=== PATIENT | male | born 1980 ===

== ENCOUNTER 2020-12-09 05:49 | Emergency (ER) | payer MEDICAID ==
[2020-12-09] MEDS ORDERED: Nitroglycerin 0.4 MG Tab.SL SL ONE (06:28)
[2020-12-09 06:35] LABS: AMPHETAMINES,URINE NEGATIVE (NEGATIVE); BARBITURATES,URINE NEGATIVE (NEGATIVE); BENZODIAZEPINE,URINE NEGATIVE (NEGATIVE); MDMA (ECSTASY), URINE NEGATIVE (NEGATIVE); METHADONE,URINE NEGATIVE (NEGATIVE); METHAMPHETAMINES,URINE NEGATIVE (NEGATIVE); OPIATES,URINE NEGATIVE (NEGATIVE); OXYCODONE,URINE NEGATIVE (NEGATIVE); PHENCYCLIDINE,URINE NEGATIVE (NEGATIVE); TCA,URINE NEGATIVE (NEGATIVE)
--- NOTE | 2020-12-09 06:35 | EDM.PDOC ---
<Bernardo Serra - Last Filed: 12/09/20 07:01> ED HPI GENERAL MEDICAL PROBLEM - General Chief Complaint: Chest Pain Stated Complaint: PAIN ON ENTIRE LEFT SIDE, ARM NUMB Time Seen by Provider: 12/09/20 06:15 Source of Information: Reports: Patient History Limitations: Reports: No Limitations - History of Present Illness INITIAL COMMENTS - FREE TEXT/NARRATIVE: This 40 yo male patient was brought to the ED by law enforcement [facility] due to left sided chest pain and left shoulder pain. The patient reports his symptoms started this morning at about 0200. The patient reports he was given aspirin while at the penitentiary with no changes in his symptoms. The patient denied any previous similar symptoms. The patient denies any history of trauma. The patient denies nausea, vomiting and cough. Onset: Today Onset Date: 12/09/20 Onset Time: 02:00 Duration: Constant Location: Reports: Chest (left sided chest wall and left shoulder) Quality: Reports: Ache, Sharp, Stabbing Severity: Moderate Improves with: Reports: None Worsens with: Reports: None Context: Reports: Other Associated Symptoms: Reports: Chest Pain Treatments [employer]ER: Reports: Aspirin Left Shoulder Pain Score (Numeric/FACES): 9 - Related Data Allergies Allergy/AdvReac Type Severity Reaction Status Date / Time No Known Allergies Allergy Verified 12/09/20 06:03 Home Meds: Home Meds . [No Known Home Meds] 12/09/20 [History] Past Medical History - Past Health History Medical/Surgical History: Denies Medical/Surgical History Social & Family History - Tobacco Use Tobacco Use Status *Q: Never Tobacco User - Caffeine Use Caffeine Use: Reports: None - Recreational Drug Use Recreational Drug Use: No ED ROS GENERAL - Review of Systems Review Of Systems: Comprehensive ROS is negative, except as noted in HPI. ED EXAM, GENERAL - Physical Exam Exam: See Below Exam Limited By: No Limitations General Appearance: Alert, WD/WN, Anxious, Moderate Distress Eye Exam: Bilateral Eye: EOMI, Normal Inspection, PERRL Ears: Normal External Exam, Normal Canal, Hearing Grossly Normal, Normal TMs Nose: Normal Inspection, Normal Mucosa, No Blood Throat/Mouth: Normal Inspection, Normal Lips, Normal Teeth, Normal Gums, Normal Oropharynx, Normal Voice, No Airway Compromise Head: Atraumatic, Normocephalic Neck: Normal Inspection, Supple, Non-Tender, Full Range of Motion Respiratory/Chest: No Respiratory Distress, Lungs Clear, Normal Breath Sounds, No Accessory Muscle Use Cardiovascular: Tachycardia GI/Abdominal: Normal Bowel Sounds, Soft, Non-Tender, No Organomegaly, No Distent ion, No Abnormal Bruit, No Mass (Male) Exam: Deferred Rectal (Males) Exam: Deferred Back Exam: Normal Inspection, Full Range of Motion, NT Extremities: Normal Inspection, Normal Range of Motion, Non-Tender, Normal Capillary Refill, No Pedal Edema Neurological: Alert, Oriented, CN II-XII Intact, Normal Cognition, Normal Gait, Normal Reflexes, No Motor/Sensory Deficits Psychiatric: Normal Affect, Normal Mood Skin Exam: Warm, Dry, Intact, Normal Color, No Rash Lymphatic: No Adenopathy Departure - Departure Disposition: DC/Tfer to Court of Law En 21 Clinical Impression: Atypical chest pain Instructions: Nonspecific Chest Pain, Adult, [id number] Forms: ED Department Discharge Additional Instructions: No contraindication to being penitentiary at this time. Use Tylenol as needed for pain. Follow up in clinic for recheck if not improved in 3 to 4 days. Sepsis Event Note (ED) - Evaluation Sepsis Screening Result: No Definite Risk <Danilo Galvan - Last Filed: 12/09/20 07:13> Course - Vital Signs Last Recorded V/S: Last Vital Signs Temp 99.0 F 12/09/20 06:04 Pulse 114 H 12/09/20 06:04 Resp 18 12/09/20 06:04 BP 124/84 12/09/20 06:34 Pulse Ox 95 12/09/20 06:04 - Orders/Labs/Meds Orders: Active Orders 24 hr Category Date Time Status EKG Documentation Completion [RC] STAT Care 12/09/20 06:02 Active Acetaminophen [TylenoL] Med 12/09/20 07:12 Once 650 mg PO NOW ONE Labs: Laboratory Tests 12/09/20 12/09/20 12/09/20 Range/Units 06:10 06:10 06:20 WBC 8.6 (5.0-10.0) 10^3/uL RBC 3.84 L (4.6-6.2) 10^6/uL Hgb 10.9 L (14.0-18.0) g/dL Hct 33.8 L (40.0-54.0) % MCV 88.0 (80-100) fL MCH 28.4 (27.0-34.0) pg MCHC 32.2 L (33.0-35.0) g/dL Plt Count 488 H (150-450) 10^3/uL Neut % (Auto) 46.9 (42.2-75.2) % Lymph % (Auto) 37.1 (20.5-50.1) % Bent % (Auto) 15.2 H (2-8) % Eos % (Auto) 0.6 L (1.0-3.0) % Baso % (Auto) 0.2 (0.0-1.0) % Sodium 137 (136-145) mmol/L Potassium 4.0 (3.5-5.1) mmol/L Chloride 103 (98-107) mmol/L Carbon Dioxide 25 (21-32) mmol/L Anion Gap 13.0 (7-13) mEq/L BUN 10 (7-18) mg/dL Creatinine 0.70 (0.70-1.30) mg/dL Est Cr Clr Drug Dosing 141.94 mL/min Estimated GFR (MDRD) > 60 BUN/Creatinine Ratio 14.3 (No establ ref range) Glucose 81 (74-99) mg/dL Calcium 7.6 L (8.5-10.1) mg/dL Total Bilirubin 0.5 (0.2-1.0) mg/dL AST 16 (15-37) U/L ALT 25 (16-63) U/L Alkaline Phosphatase 61 (46-116) U/L Troponin I 0.019 (0.000-0.056) ng/mL Total Protein 5.6 L (6.4-8.2) g/dL Albumin 1.7 L (3.4-5.0) g/dL Globulin 3.9 Albumin/Globulin Ratio 0.44 Urine Color Yellow (YELLOW) Urine Appearance Turbid (CLEAR) Urine pH 8.0 (5.0-9.0) Ur Specific [place] 1.025 (1.005-1.030) Urine Protein Negative (NEGATIVE) Urine Glucose (UA) Negative (NEGATIVE) Urine Ketones Negative (NEGATIVE) Urine Occult Blood Negative (NEGATIVE) Urine Nitrite Negative (NEGATIVE) Urine Bilirubin Negative (NEGATIVE) Urine Urobilinogen 1.0 (0.2-1.0) mg/dL Ur Leukocyte Esterase Negative (NEGATIVE) Urine Opiates Screen (NEGATIVE) Ur Oxycodone Screen (NEGATIVE) Urine Methadone Screen (NEGATIVE) Ur Barbiturates Screen (NEGATIVE) U Tricyclic Antidepress (NEGATIVE) Ur Phencyclidine Scrn (NEGATIVE) Ur Amphetamine Screen (NEGATIVE) U Methamphetamines Scrn (NEGATIVE) Urine MDMA Screen (NEGATIVE) U Benzodiazepines Scrn (NEGATIVE) Urine Cocaine Screen (NEGATIVE) U Marijuana (THC) Screen (NEGATIVE) 12/09/20 Range/Units 06:20 WBC (5.0-10.0) 10^3/uL RBC (4.6-6.2) 10^6/uL Hgb (14.0-18.0) g/dL Hct (40.0-54.0) % MCV (80-100) fL MCH (27.0-34.0) pg MCHC (33.0-35.0) g/dL Plt Count (150-450) 10^3/uL Neut % (Auto) (42.2-75.2) % Lymph % (Auto) (20.5-50.1) % Bent % (Auto) (2-8) % Eos % (Auto) (1.0-3.0) % Baso % (Auto) (0.0-1.0) % Sodium (136-145) mmol/L Potassium (3.5-5.1) mmol/L Chloride (98-107) mmol/L Carbon Dioxide (21-32) mmol/L Anion Gap (7-13) mEq/L BUN (7-18) mg/dL Creatinine (0.70-1.30) mg/dL Est Cr Clr Drug Dosing mL/min Estimated GFR (MDRD) BUN/Creatinine Ratio (No establ ref range) Glucose (74-99) mg/dL Calcium (8.5-10.1) mg/dL Total Bilirubin (0.2-1.0) mg/dL AST (15-37) U/L ALT (16-63) U/L Alkaline Phosphatase (46-116) U/L Troponin I (0.000-0.056) ng/mL Total Protein (6.4-8.2) g/dL Albumin (3.4-5.0) g/dL Globulin Albumin/Globulin Ratio Urine Color (YELLOW) Urine Appearance (CLEAR) Urine pH (5.0-9.0) Ur Specific [place] (1.005-1.030) Urine Protein (NEGATIVE) Urine Glucose (UA) (NEGATIVE) Urine Ketones (NEGATIVE) Urine Occult Blood (NEGATIVE) Urine Nitrite (NEGATIVE) Urine Bilirubin (NEGATIVE) Urine Urobilinogen (0.2-1.0) mg/dL Ur Leukocyte Esterase (NEGATIVE) Urine Opiates Screen Negative (NEGATIVE) Ur Oxycodone Screen Negative (NEGATIVE) Urine Methadone Screen Negative (NEGATIVE) Ur Barbiturates Screen Negative (NEGATIVE) U Tricyclic Antidepress Negative (NEGATIVE) Ur Phencyclidine Scrn Negative (NEGATIVE) Ur Amphetamine Screen Negative (NEGATIVE) U Methamphetamines Scrn Negative (NEGATIVE) Urine MDMA Screen Negative (NEGATIVE) U Benzodiazepines Scrn Negative (NEGATIVE) Urine Cocaine Screen Negative (NEGATIVE) U Marijuana (THC) Screen Negative (NEGATIVE) Meds: Medications Discontinued Medications Generic Name Dose Route Start Last Admin Trade Name Freq PRN Reason Stop Dose Admin Nitroglycerin 0.4 mg 12/09/20 06:28 12/09/20 06:34 Nitrostat SL 12/09/20 06:29 0.4 mg ONETIME ONE Administration - Radiology Interpretation Free Text/Narrative:: [facility] Final Radiology Report Call: [phone] assistance Online chat: [email or web address] Name: MATIAS REDD Age: 40Years M Date: 12/09/2020 SSN: -- : 1980 Study: CR CHEST 2V Requesting Physician: Bernardo Serra Images: 2 Addl Studies: Provided Clinical History: chest pain, left shoulder pain Contrast: Contrast Medium: Contrast Amount: Contrast Method: CONFIDENTIALITY STATEMENT This report is intended only for use by the referring physician, and only in accordance with law. If you received this in error, call [phone]. Page 1 of 1 PROCEDURE INFORMATION: Exam: XR Chest, 2 Views Exam date and time: 12/09/2020 6:50 AM Age: 40 years old Clinical indication: Chest pain; Additional info: Chest pain, left shoulder pain TECHNIQUE: Imaging protocol: XR of the chest Views: 2 views. COMPARISON: No relevant prior studies available. FINDINGS: Lungs: Unremarkable. No consolidation. Pleural spaces: Unremarkable. No pleural effusion. No pneumothorax. Heart/Mediastinum: Unremarkable. No cardiomegaly. Bones/joints: Unremarkable. IMPRESSION: No acute findings. Thank you for allowing us to participate in the care of your patient. Dictated and Authenticated by: Tremaine Stack MD 12/09/2020 7:04 AM Central Time ( & [place]) [facility] Final Radiology Report Call: [phone] assistance Online chat: [email or web address] Name: MATIAS REDD Age: 40Years M Date: 12/09/2020 SSN: -- : 1980 Study: CR SHOULDER COMP LT Requesting Physician: Bernardo Serra Images: 2 Addl Studies: Provided Clinical History: chest pain, left shoulder pain Contrast: Contrast Medium: Contrast Amount: Contrast Method: CONFIDENTIALITY STATEMENT This report is intended only for use by the referring physician, and only in accordance with law. If you received this in error, call [phone]. Page 1 of 1 PROCEDURE INFORMATION: Exam: XR Left Shoulder Exam date and time: 12/09/2020 6:52 AM Age: 40 years old Clinical indication: Pain; Shoulder; Left; Additional info: Chest pain, left shoulder pain TECHNIQUE: Imaging protocol: XR Left shoulder. Views: 2 or more views. COMPARISON: No relevant prior studies available. FINDINGS: Bones/joints: There is no evidence of acute fracture or dislocation. No significant narrowing of the joint spaces. No lytic or blastic lesions. Soft tissues: No radiopaque foreign body within the soft tissues. IMPRESSION: No acute findings appreciated. Thank you for allowing us to participate in the care of your patient. Dictated and Authenticated by: Tremaine Stack MD 12/09/2020 7:05 AM Central Time ([place] & [place]) Departure - Departure Time of Disposition: 07:08 Reason for Transfer *Q: Other Condition: Good Sepsis Event Note (ED) - Focused Exam Vital Signs: Vital Signs Temp Pulse Resp BP BP Pulse Ox 12/09/20 06:34 124/84 12/09/20 06:04 99.0 F 114 H 18 127/89 95 - My Orders Last 24 Hours: My Active Orders 12/09/20 07:12 Acetaminophen [TylenoL] 650 mg PO NOW ONE - Assessment/Plan Last 24 Hours: My Active Orders 12/09/20 07:12 Acetaminophen [TylenoL] 650 mg PO NOW ONE
[2020-12-09 06:50] LABS: CHLORIDE,CL 103 mmol/L (98-107); SODIUM,NA 137 mmol/L (136-145)
--- NOTE | 2020-12-09 07:04 | CR ---
PROCEDURE INFORMATION: Exam: XR Chest, 2 Views Exam date and time: 12/09/2020 6:50 AM Age: 40 years old Clinical indication: Chest pain; Additional info: Chest pain, left shoulder pain TECHNIQUE: Imaging protocol: XR of the chest Views: 2 views. COMPARISON: No relevant prior studies available. FINDINGS: Lungs: Unremarkable. No consolidation. Pleural spaces: Unremarkable. No pleural effusion. No pneumothorax. Heart/Mediastinum: Unremarkable. No cardiomegaly. Bones/joints: Unremarkable. IMPRESSION: No acute findings.
--- NOTE | 2020-12-09 07:05 | CR ---
PROCEDURE INFORMATION: Exam: XR Left Shoulder Exam date and time: 12/09/2020 6:52 AM Age: 40 years old Clinical indication: Pain; Shoulder; Left; Additional info: Chest pain, left shoulder pain TECHNIQUE: Imaging protocol: XR Left shoulder. Views: 2 or more views. COMPARISON: No relevant prior studies available. FINDINGS: Bones/joints: There is no evidence of acute fracture or dislocation. No significant narrowing of the joint spaces. No lytic or blastic lesions. Soft tissues: No radiopaque foreign body within the soft tissues. IMPRESSION: No acute findings appreciated.
[2020-12-09] MEDS ORDERED: Acetaminophen 325 MG Tab PO ONE (07:12)
== END 2020-12-09 07:25 ==
LOC: DL.ED 05:49
DX: R07.89 Other chest pain (principal)
CPT/HCPCS: 36415; 71046; 73030; 80053; 80305; 81003; 84484; 85025; 93005; 99285; A9270; 99283

== ENCOUNTER 2021-09-28 12:51 | Emergency (ER) | payer MEDICAID ==
[2021-09-28 14:21] LABS: ANION GAP 15.4 mEq/L (7-13); CHLORIDE,CL 100 mmol/L (98-107); SODIUM,NA 135 mmol/L (136-145)
[2021-09-28] MEDS ORDERED: Iopamidol 612 MG/ML 100 ML Bottle IVPUSH ONE (14:30)
--- NOTE | 2021-09-28 15:36 | CT ---
PROCEDURE INFORMATION: Exam: CT Abdomen And Pelvis With Contrast Exam date and time: 09/28/2021 2:39 PM Age: 41 years old Clinical indication: Other: Abdominal incision with purulent drainage; Prior surgery; Surgery date: 1-6 months; Surgery type: Colon surgery beginning of August 2021 TECHNIQUE: Imaging protocol: Computed tomography of the abdomen and pelvis with contrast. Radiation optimization: All CT scans at this facility use at least one of these dose optimization techniques: automated exposure control; mA and/or kV adjustment per patient size (includes targeted exams where dose is matched to clinical indication); or iterative reconstruction. Contrast material: ISOVUE 300; Contrast volume: 75 ml; Contrast route: INTRAVENOUS (IV); COMPARISON: CR Chest 1V Frontal 08/12/2021 5:03 AM FINDINGS: Lungs: Consolidation/scarring in the right middle lobe with associated traction bronchiectasis. Scarring and atelectasis also appreciated in the left lower lobe. Visualized lung bases appear otherwise clear except for mild scarring/linear atelectasis in the lingula and left lung base. Diaphragm: There is nonspecific elevation of the right hemidiaphragm. Liver: There is enlargement of the liver, measuring 22 cm. There is a diffuse decrease in hepatic parenchymal density, consistent with fatty infiltration. There are multiple simple right renal cysts. Gallbladder and bile ducts: Normal. No calcified stones. No ductal dilation. Pancreas: Normal. No ductal dilation. Spleen: Normal. No splenomegaly. Adrenal glands: Normal. No mass. Kidneys and ureters: Largest right renal cyst measures 1.2 cm. The right kidney is otherwise unremarkable. The right ureter is normal. The left ureter is normal. The left kidney is normal. Stomach and bowel: Partial colectomy. [place] colonic anastomosis in the left upper quadrant. No significant bowel wall thickening or bowel obstruction. There is moderate constipation. Appendix: No evidence of appendicitis. Intraperitoneal space: 12.5 cm x 2.3 cm x 8.4 cm rim enhancing and gas containing intraperitoneal/peritoneal fluid collection (image 45 series 2 and image 40 series 4). The collection abuts directly on the peritoneal wall. There is a small amount of free intraperitoneal fluid present. Scattered foci of free air appreciated in the left upper quadrant mesentery and right subdiaphragmatic region. Mild diffuse mesenteric haziness/edema. Retroperitoneal space: No acute abnormalities in the retroperitoneal space. Vasculature: Unremarkable. No abdominal aortic aneurysm. Lymph nodes: Prominent retroperitoneal and mesenteric lymph nodes, most probably of reactive etiology. Urinary bladder: Unremarkable as visualized. Reproductive: Unremarkable as visualized. Bones/joints: No acute skeletal pathology. Mild multilevel degenerative changes of the spine, as manifested by multilevel anterior osteophytes and multilevel decrease in intervertebral disc space. Note is made of a prominent posterior disc bulge at L4-L5, causing moderate central canal stenosis and moderate bilateral neural foraminal stenosis at this level. Soft tissues: 3.4 cm x 4.5 cm x 9.6 cm gas containing subcutaneous fluid collection in the ventral abdominal wall (image 43 series 2 and image 45 series 4). Well-defined tract connecting the intraperitoneal fluid collection with the subcutaneous fluid collection (image 43 series 2). Surgical skin clips projecting in the ventral abdominal wall. Mild body wall edema. IMPRESSION: 1. 12.5 cm x 2.3 cm x 8.4 cm intraperitoneal/peritoneal abscess in the anterior abdomen interconnecting with a 3.4 cm x 4.5 cm x 9.6 cm subcutaneous ventral abdominal wall abscess through a well-defined tract in the ventral abdominal wall, as detailed above. Note that the intraperitoneal abscess is inseparable from the colo colonic anastomosis. Anastomotic leak is within the differential diagnosis. 2. Scattered pneumoperitoneum, could be related to air leakage from the intraperitoneal abscess, or leakage from the colo colonic anastomosis. 3. Reactive mesenteric and retroperitoneal adenopathy. 4. Bilateral lung base findings are most compatible with chronic scarring/atelectasis. Superimposed infectious pneumonic process should be entertained in the appropriate clinical setting. 5. Incidental findings as detailed above. COMMENTS: Consistent with the [employer]'s Incidental Findings Committee white paper (J Am Josiah Radiol 2018): Any incidental renal lesion less than 1 cm or classified as too small to characterize, or any incidental cystic renal lesion characterized as simple-appearing, is likely benign. No follow-up imaging is recommended for these lesions per consensus recommendations based on imaging criteria.
[2021-09-28] MEDS ORDERED: cefTRIAXone 1 GM in Sodium Chloride 0.9% 50 ML IV ONE (15:54)
[2021-09-28] MEDS ORDERED: metroNIDAZOLE/Normal Saline 500 MG in Premix Bag 100 BAG IV ONE (15:54)
--- NOTE | 2021-09-28 16:11 | EDM.PDOC ---
ED HPI GENERAL MEDICAL PROBLEM - General Chief Complaint: Skin Complaint Time Seen by Provider: 09/28/21 13:00 Source of Information: Reports: Patient History Limitations: Reports: No Limitations - History of Present Illness INITIAL COMMENTS - FREE TEXT/NARRATIVE: This 41 yo male patient was brought to the ED by [facility] due to drainage from a surgical wound in his abdomen. The patient reports he had surgery in [facility] for a bowel resection 1-2 months ago. Today, the patient went to a gas station when he started to cough and noticed drainage from the surgical wound. The patient reports he did not follow-up to have his stanford removed after surgery and has not had problems until now. Onset: Today Duration: Minutes:, Constant Location: Reports: Abdomen Quality: Reports: Other Severity: Moderate Improves with: Reports: None Worsens with: Reports: None Context: Reports: Other Associated Symptoms: Reports: No Other Symptoms - Related Data Allergies Allergy/AdvReac Type Severity Reaction Status Date / Time No Known Allergies Allergy Verified 09/28/21 12:51 Home Meds: Home Meds . [No Known Home Meds] 12/09/20 [History] Past Medical History - Past Health History Medical/Surgical History: Denies Medical/Surgical History Respiratory History: Reports: Intubation, Previous, Other (See Below) Other Respiratory History: COVID Gastrointestinal History: Reports: Bowel Obstruction - Infectious Disease History Infectious Disease History: Reports: Novel Coronavirus - Past Surgical History GI Surgical History: Reports: Small Bowel Social & Family History - Tobacco Use Tobacco Use Status *Q: Current Every Day Tobacco User Years of Tobacco use: 15 Packs/Tins Daily: 0.3 - Caffeine Use Caffeine Use: Reports: Soda - Recreational Drug Use Recreational Drug Use: No ED ROS GENERAL - Review of Systems Review Of Systems: Comprehensive ROS is negative, except as noted in HPI. ED EXAM, SKIN/RASH Exam: See Below Exam Limited By: No Limitations General Appearance: Alert, WD/WN, Moderate Distress Eye Exam: Bilateral Eye: EOMI, Normal Inspection, PERRL Ears: Normal External Exam, Normal Canal, Hearing Grossly Normal, Normal TMs Nose: Normal Inspection, Normal Mucosa, No Blood Throat/Mouth: Normal Inspection, Normal Lips, Normal Teeth, Normal Gums, Normal Oropharynx, Normal Voice, No Airway Compromise Head: Atraumatic, Normocephalic Neck: Normal Inspection, Supple, Non-Tender, Full Range of Motion Respiratory/Chest: No Respiratory Distress, Lungs Clear, Normal Breath Sounds, No Accessory Muscle Use, Chest Non-Tender Cardiovascular: Normal Peripheral Pulses, Regular Rate, Rhythm, No Edema, No Gallop, No JVD, No Murmur, No Rub GI/Abdominal: Tender, Other (Drainage from the surgical wound) (Male) Exam: Deferred Rectal (Males) Exam: Deferred Back Exam: Normal Inspection, Full Range of Motion, NT Extremities: Normal Inspection, Normal Range of Motion, Non-Tender, No Pedal Edema, Normal Capillary Refill Neurological: Alert, Oriented, CN II-XII Intact, Normal Cognition, Normal Gait, Normal Reflexes, No Motor/Sensory Deficits Psychiatric: Normal Affect, Normal Mood Skin: Wound/Incision Location, Skin: Abdomen Characteristics: Other Lymphatic: No Adenopathy Course - Vital Signs Last Recorded V/S: Last Vital Signs Temp 100.7 F H 09/28/21 12:52 Pulse 129 H 09/28/21 12:52 Resp 20 09/28/21 12:52 BP 119/85 09/28/21 12:52 Pulse Ox 97 09/28/21 12:52 - Orders/Labs/Meds Orders: Active Orders 24 hr Category Date Time Status CORONAVIRUS COVID-19 ESTELLA [MOLEC] Urgent Lab 09/28/21 15:56 Ordered CULTURE BLOOD [BC] Stat Lab 09/28/21 13:40 Received CULTURE BLOOD [BC] Stat Lab 09/28/21 13:50 Received CULTURE WOUND [RM] Stat Lab 09/28/21 12:34 Received cefTRIAXone [Rocephin] 1 gm Med 09/28/21 15:54 Ordered Sodium Chloride 0.9% [Normal Saline AdvBag] 50 ml IV ONETIME metroNIDAZOLE/Normal Saline [Flagyl in NS 500 MG/100 ML Med 09/28/21 15:54 Ordered ] 500 mg Premix Bag 100 bag IV ONETIME Blood Culture x2 Reflex Set [OM.PC] Stat Oth 09/28/21 13:34 Ordered Medication Orders Ceftriaxone Sodium 1 gm/ (Sodium Chloride) 50 mls @ 100 mls/hr IV ONETIME ONE Stop: 09/28/21 16:23 Metronidazole 500 mg/ Premix 100 mls @ 100 mls/hr IV ONETIME ONE Stop: 09/28/21 16:53 Labs: Laboratory Tests 09/28/21 09/28/21 09/28/21 Range/Units 13:40 13:40 13:40 WBC 21.1 H (5.0-10.0) 10^3/uL RBC 3.73 L (4.6-6.2) 10^6/uL Hgb 9.9 L (14.0-18.0) g/dL Hct 32.5 L (40.0-54.0) % MCV 87.1 D (80-100) fL MCH 26.5 L (27.0-34.0) pg MCHC 30.5 L (33.0-35.0) g/dL Plt Count 525 H D (150-450) 10^3/uL Neut % (Auto) 77.4 H (42.2-75.2) % Lymph % (Auto) 16.4 L (20.5-50.1) % [place] % (Auto) 6.0 (2-8) % Eos % (Auto) 0.2 L (1.0-3.0) % Baso % (Auto) 0.0 (0.0-1.0) % Sodium 135 L D (136-145) mmol/L Potassium 3.4 L D (3.5-5.1) mmol/L Chloride 100 (98-107) mmol/L Carbon Dioxide 23 (21-32) mmol/L Anion Gap 15.4 H (7-13) mEq/L BUN 9 D (7-18) mg/dL Creatinine 0.58 L (0.70-1.30) mg/dL Est Cr Clr Drug Dosing 180.25 mL/min Estimated GFR (MDRD) > 60 BUN/Creatinine Ratio 15.5 (No establ ref range) Glucose 86 (70-99) mg/dL Lactic Acid 0.7 (0.4-2.0) mmol/L Calcium 8.3 L (8.5-10.1) mg/dL Total Bilirubin 0.4 (0.2-1.0) mg/dL AST 17 (15-37) U/L ALT 26 (16-63) U/L Alkaline Phosphatase 87 (46-116) U/L Total Protein 7.1 (6.4-8.2) g/dL Albumin 2.1 L (3.4-5.0) g/dL Globulin 5.0 Albumin/Globulin Ratio 0.42 Meds: Medications Generic Name Dose Route Start Last Admin Trade Name Freq PRN Reason Stop Dose Admin Ceftriaxone Sodium 1 gm/ 50 mls @ 100 mls/hr 09/28/21 15:54 Sodium Chloride IV 09/28/21 16:23 ONETIME ONE Metronidazole 500 mg/ Premix 100 mls @ 100 mls/hr 09/28/21 15:54 IV 09/28/21 16:53 ONETIME ONE Discontinued Medications Generic Name Dose Route Start Last Admin Trade Name Freq PRN Reason Stop Dose Admin Iopamidol 100 ml 09/28/21 14:30 09/28/21 14:58 Iopamidol 612 Mg/Ml 100 Ml Bottle IVPUSH 09/28/21 14:31 75 ml ONETIME ONE Administration Departure - Departure Time of Disposition: 16:11 Disposition: DC/Tfer to [facility] 02 Condition: Serious Clinical Impression: Intra-abdominal abscess Surgical complication Qualifiers: Surgical complication system/body Area: subcutaneous tissue Surgical complication type: unspecified Timing of complication: postoperative complication Procedure type: dermatologic Qualified Code(s): L76.82 - Other postprocedural complications of skin and subcutaneous tissue Subcutaneous abscess Qualifiers: Site of cutaneous abscess: unspecified site Qualified Code(s): L02.91 - Cutaneous abscess, unspecified - Discharge Information *PRESCRIPTION DRUG MONITORING PROGRAM REVIEWED*: Not Applicable *COPY OF PRESCRIPTION DRUG MONITORING REPORT IN PATIENT ABA: Not Applicable Forms: Interfacility Transfer EMTALA Care Plan Goals: Discussed the patient's history, examination, lab and CT results with Dr. Osorio ([facility]). Dr. Osorio accepted the patient for continued evaluation and management as an inpatient at [facility] in [place]. The patient will be transported by [facility]. Sepsis Event Note (ED) - Evaluation Sepsis Screening Result: No Definite Risk - Focused Exam Vital Signs: Vital Signs Temp Pulse Resp BP Pulse Ox 09/28/21 12:52 100.7 F H 129 H 20 119/85 97 - My Orders Last 24 Hours: My Active Orders 09/28/21 12:34 CULTURE WOUND [RM] Stat 09/28/21 13:34 Blood Culture x2 Reflex Set [OM.PC] Stat 09/28/21 13:40 CULTURE BLOOD [BC] Stat 09/28/21 13:50 CULTURE BLOOD [BC] Stat 09/28/21 15:54 cefTRIAXone [Rocephin] 1 gm Sodium Chloride 0.9% [Normal Saline AdvBag] 50 ml IV ONETIME metroNIDAZOLE/Normal Saline [Flagyl in NS 500 MG/100 ML] 500 mg Premix Bag 100 bag IV ONETIME 09/28/21 15:56 CORONAVIRUS COVID-19 ESTELLA [MOLEC] Urgent - Assessment/Plan Last 24 Hours: My Active Orders 09/28/21 12:34 CULTURE WOUND [RM] Stat 09/28/21 13:34 Blood Culture x2 Reflex Set [OM.PC] Stat 09/28/21 13:40 CULTURE BLOOD [BC] Stat 09/28/21 13:50 CULTURE BLOOD [BC] Stat 09/28/21 15:54 cefTRIAXone [Rocephin] 1 gm Sodium Chloride 0.9% [Normal Saline AdvBag] 50 ml IV ONETIME metroNIDAZOLE/Normal Saline [Flagyl in NS 500 MG/100 ML] 500 mg Premix Bag 100 bag IV ONETIME 09/28/21 15:56 CORONAVIRUS COVID-19 ESTELLA [MOLEC] Urgent
== END 2021-09-28 16:50 ==
LOC: DL.ED 12:51
DX: L76.82 Other postprocedural complications of skin and subcutaneous tissue (principal); K65.1 Peritoneal abscess; Z86.16 Personal history of COVID-19; Z72.0 Tobacco use
CPT/HCPCS: 36415; 74177; 80053; 83605; 85025; 87040; 87070; 87635; 96365; 99284; J3490; Q9967; U0002